=== PATIENT | male | born 1965 | race Caucasian/White ===

== ENCOUNTER 2022-05-08 10:37 | Emergency (ER) | payer MEDICAID ==
[~2022-05-08] VITALS: Ht 170.2 cm; Wt 105.0 kg
[2022-05-08 10:44] VITALS: BP 156/96
[2022-05-08] MEDS ORDERED: NAPR-681 PO (11:44)
[2022-05-08] MEDS ORDERED: CYCL10TA21 PO (11:46)
== END 2022-05-08 12:12 | disposition home or self-care (01) ==
LOC: ER 10:53
DX: R51.9 Headache, unspecified (principal)
CPT/HCPCS: 99283